=== PATIENT | female | born 1980 | race Caucasian/White ===

== ENCOUNTER 2021-03-10 11:12 | Emergency (ER) | payer OTHER ==
[~2021-03-10] VITALS: Ht 157.5 cm; Wt 77.1 kg
[2021-03-10 11:24] VITALS: BP 130/80
--- NOTE | 2021-03-10 11:31 | NUR ---
PT AMB TO BED 12
--- NOTE | 2021-03-10 12:01 | NUR ---
PT PLACED INTO GOWN AND PROVIDED WITH URINE CUP
--- NOTE | 2021-03-10 12:06 | NUR ---
40 Y FEMALE FROM HOME WITH C/O ABDOMINAL PAIN AND N/V X1 DAY. PER PT SHE WOKE UP THIS AM "ATE SOME RICE AND PORK AND THEN STARTED TO FEEL SICK." PT STATED THE PAIN IS CURRENTLY 10/10 AND IS FELT IN THE UPPER ABDOMEN AND RADIATES TO HER LUQ. PT DENIES ANY CHEST PAIN, SOB, FEVER/CHILLS. ABDOMEN IS TENDER AND SLIGHTLY DISTENDED. BOWEL SOUNDS ACTIVE. PT A&OX4, SKIN DRY AND INTACT. PT PLACED ONTO SALES SERVICE REP PMH: DENIES ALLERGIES: CODEINE
--- NOTE | 2021-03-10 12:12 | NUR ---
PT PROVIDED WITH WARM BLANKET
[2021-03-10] MEDS ORDERED: NACL 0.9% 1,000 ML IV ONE (12:40)
[2021-03-10] MEDS ORDERED: ONDANSETRON 4 MG/2 ML VIAL IVP ONE (12:40)
--- NOTE | 2021-03-10 12:48 | NUR ---
IV ESTABLISHED TO LEFT AC 20G, GOOD BLOOD RETURN. LABS COLLECTED WALKED OVER.
[2021-03-10] MEDS ORDERED: KETOROLAC 30 MG/ML VIAL IVP ONE (13:00)
--- NOTE | 2021-03-10 13:08 | NUR ---
PT states + relief 09/23 denies nausea at this time. IVF continued. Bed locked in lowest position, side rails x 1.
[2021-03-10 13:19] LABS: BASOPHILS # (AUTO) 0.1 K/uL (0.00-0.22); BASOPHILS % (AUTO) 0.7 % (0.0-2.0); EOSINOPHILS # (AUTO) 0.1 K/uL (0-0.4); EOSINOPHILS % (AUTO) 0.9 % (0.0-4.0); HEMATOCRIT 40.1 % (36-48); HEMOGLOBIN 13.8 g/dL (12.0-16.0); LYMPHOCYTES # (AUTO) 1.5 K/uL (2.5-16.5); LYMPHOCYTES % (AUTO) 10.8 % (20.5-51.1); MEAN CORPUSCULAR HEMOGLOBIN 32 pg (27-31); MEAN CORPUSCULAR HGB CONC 34 g/dL (33-37); MEAN CORPUSCULAR VOLUME 93.1 fL (80-94); MONOCYTES # (AUTO) 0.7 K/uL (0.8-1.0); MONOCYTES % (AUTO) 4.7 % (1.7-9.3); NEUTROPHILS # (AUTO) 11.7 K/uL (1.8-7.7); NEUTROPHILS % (AUTO) 82.9 % (42.2-75.2); PLATELET COUNT (AUTO) 341 K/uL (140-450); RED BLOOD CELL COUNT(AUTO) 4.31 MIL/uL (4.20-5.40); RED CELL DISTRIBUTION WIDTH 12.8 % (11.6-13.7); WHITE BLOOD COUNT (AUTO) 14.1 K/uL (4.8-10.8)
[2021-03-10 13:24] LABS: BILIRUBIN,URINE NEGATIVE (NEGATIVE); BLOOD, URINE 1+ (NEGATIVE); COLOR,URINE YELLOW (YELLOW); LEUKOCYTE ESTERASE ,URINE NEGATIVE (NEGATIVE); NITRITE, URINE NEGATIVE (NEGATIVE); UGLUCOSE NEGATIVE (NEGATIVE)
[2021-03-10 13:35] LABS: ALBUMIN 3.8 g/dL (3.4-5.0); ANION GAP 12.6 (8-16); CARBON DIOXIDE 28.3 mmol/L (21-32); CREATININE 0.7 mg/dL (0.6-1.3); POTASSIUM 3.9 mmol/L (3.5-5.1)
--- NOTE | 2021-03-10 13:37 | NUR ---
Pt reports + relief 3/10 pain at this time denies nausea.
[2021-03-10 13:41] LABS: RBC,URINE 0-5 /HPF (0-5); WBC,URINE 0-5 /HPF (0-5)
[2021-03-10] MEDS ORDERED: ONDA-188 SL (13:42)
[2021-03-10 13:43] LABS: APPEARANCE,URINE SLIGHTLY HAZY (CLEAR)
[2021-03-10 15:16] VITALS: BP 116/62
== END 2021-03-10 15:15 | disposition home or self-care (01) ==
LOC: MED 11:12
DX: R11.2 Nausea with vomiting, unspecified (principal); R10.9 Unspecified abdominal pain; Z88.5 Allergy status to narcotic agent
CPT/HCPCS: 36415; 74022; 80053; 81001; 81025; 83690; 85025; 96361; 96374; 96375; 99285; J1885; J2405; J7030